=== PATIENT | male | born 1955 | race Caucasian/White ===

== ENCOUNTER 2024-06-03 10:29 | Observation (INO) ==
--- NOTE | 2024-04-29 11:11 | PAT Medication Instructions ---
Medication Instructions Date of Service April 29, 2024 Home Medications ibuprofen 200 mg tablet (Advil) 200 mg PO Q6H PRN ASK your surgeon for instructions ibuprofen 200 mg tablet (Advil) 200 mg PO Q6H PRN Other Notes NOTHING TO EAT OR DRINK AFTER MIDNIGHT. If you have any questions please call us at [phone] or [phone] or [phone] or [phone]
--- NOTE | 2024-05-08 11:18 | Anesthesiology Consultation ---
Date of Service May 08, 2024 Assessment & Plan (1) Encounter for pre-operative examination: - Outpatient joint assessment: Patient is currently scheduled for inpatient pathway. If re-evaluated and patient/surgeon requests outpatient pathway, patient is acceptable candidate for outpatient joint program from anesthesia standpoint pending surgeon's office assessment of pt motivation/support/completion of same day joint program preop requirements. Chart Review Chart Review: Acceptable Risk for Surgery and Patient seen in Pre Admission Testing Teaching & Discussion Pre-Anesthesia Teaching/Discussion Notes: Instructed NPO after midnight before surgery, except medications with 15 cc of water. Medication instructions provided according to the PAT guidelines. History Surgery Operation Date: 06/03/24 10:40 Proposed Procedures p Right Total Knee Arthroplasty - Christopher Milton MD Height/Weight Height: 5 ft 6 in Weight: 100.5 kg Allergies Allergy/AdvReac Type Severity Reaction Status Date / Time No Known Allergies Allergy Verified 04/28/24 09:18 Medications Home Medications Medication Instructions Recorded Confirmed Last Taken ibuprofen 200 mg tablet (Advil) 200 mg PO Q6H PRN Pain 02/17/20 04/28/24 Unknown Past Medical History Medical History Arthritis History of COVID-19 (2019) no hosp; resolved Obesity Stomach ulcer Summer 2019 (r/t NSAID use) Patient denies h/o stroke, seizures, heart attack, heart failure, DM, HTN, blood clots/DVTs or blood transfusions. Exercise / Class Metabolic Activity II 4-5 Yardwork/Stairs/Walk up hill (denies chest discomfort or shortness of breath with one flight of stairs) Past Family History Family History Other No family history of adverse response to anesthesia Past Surgical History Surgical History History of colonoscopy History of esophagogastroduodenoscopy (EGD) History of shoulder surgery Right History of total knee replacement Left Past Anesthesia History No Hx of Anesthesia Complications and No Family Hx of Anesthesia Complications History of PONV No Hx of PONV and No Hx of Motion Sickness Social History Smoking Status: Never smoker Do You Dip or Chew Tobacco: No Hx Alcohol Use: Yes Alcohol type: beer alcohol intake frequency: a few times a week Hx Substance Use: No substance use type: does not use Review of Systems Patient denies chest pain, shortness of breath, dyspnea on exertion, snoring, witnessed apneas, fever, chills, cough, wheezing, or palpitations. Physical Exam Vital Signs Vitals BP 127/79 P 76 TEMP 98.0 SP02 96% on RA RESP 19 Physical Patient resting comfortably in chair in no acute distress, alert and oriented, responding appropriately throughout visit Full cervical extension range of motion without pain TMD 3.5 finger breadths Mallampati Score 3 Dentition: intact, denies chipped or loose teeth, caps/crowns, implants or bridges Lungs: normal respiratory effort. Good air movement, clear throughout to auscultation, no adventitious breath sounds Cardiac: regular rate and rhythm, no murmurs noted Carotid arteries: negative bruit bilat Lab Results Anesthesia Preop Results Results Anesthesia Widget: WBC 6.05 K/ul (4.8-10.8) 05/08/24 Hgb 14.7 g/dl (14.0-18.0) 05/08/24 Hct 43.4 % (42.0-52.0) 05/08/24 Plt 286 K/uL (130-400) 05/08/24 Na 139 mmol/L (136-145) 05/08/24 K 4.1 mmol/L (3.5-5.1) 05/08/24 Cl 105 mmol/L (98-107) 05/08/24 CO2 29 mmol/L (21-32) 05/08/24 BUN 21 mg/dl (6-23) 05/08/24 Creat 0.92 mg/dl (0.6-1.4) 05/08/24 Glucose Level 83 mg/dl (70-99(Fasting)) 05/08/24 PT 10.3 Seconds (9.0-12.0) 05/08/24 PTT 26 Seconds (21-31) 05/08/24 INR 0.9 (0.9-1.1) 05/08/24 Blood Type A Positive 05/08/24 Antibody Screen NEGATIVE 05/08/24 Testing Electrocardiogram Date: 05/08/24 NSR, rate 74 bpm Chest X-Ray Date: 05/08/24 1. No active lung lesion noted. No other abnormalities noted. 2. Unfolding of arch of aorta likely due to senile changes.
--- NOTE | 2024-05-31 10:02 | History & Physical Report ---
Date of Service May 31, 2024 Assessment & Plan (1) Arthritis of knee, right: 68-year-old gentleman status post a left knee replacement 8 years ago with advanced right knee DJD. He has failed conservative treatment. He would like to proceed with knee replacement. Plan: We are going to take him to the operating room to do a right knee replacement. The risks and benefits of this procedure explained. Informed consent is obtained. Will use aspirin for DVT prophylaxis. He is planned to be discharged to home using [facility] health program. (2) History of total knee replacement: (3) Obesity: History of Present Illness Chief Complaint: . Persistent and progressive right knee pain and discomfort. Primary Care Provider: NO PCP . The patient is a 68-year-old gentleman well-known me from a previous left knee replacement done in 2014. He is done well well with this. Over the years he developed increased pain discomfort in his right knee. Failed conservative treatment. He was actually scheduled for knee replacement the past but got canceled due to COVID. He has been put in up with us over the past several years. Pain is gradually gotten worse. He like to have his right knee replaced. Allergies Allergy/AdvReac Type Severity Reaction Status Date / Time No Known Allergies Allergy Verified 04/28/24 09:18 Home Medications Medication Instructions Recorded Confirmed Type ibuprofen 200 mg tablet (Advil) 200 mg PO Q6H PRN Pain 02/17/20 04/28/24 History Past Med/Surg History Problem List Encounter for pre-operative examination Arthritis of knee, right Medical History History of COVID-19 (2019) no hosp; resolved Obesity Arthritis Stomach ulcer Summer 2019 (r/t NSAID use) Surgical History History of esophagogastroduodenoscopy (EGD) History of colonoscopy History of shoulder surgery Right History of total knee replacement Left Family History Other No family history of adverse response to anesthesia Social History Smoking Status: Never smoker Second Hand Exposure: Yes (PARENTS SMOKED WHEN PT WAS A CHILD); Do You Dip or Chew Tobacco: No; Hx Alcohol Use: Yes Alcohol type: beer Hx Substance Use: No Preferred Language: [place] Communication Ability: Effective Vending Machine Operator Required: No Beliefs That Will Affect Care: None Current Living Situation: Spouse Feels Safe at Home: Yes Assistive Devices: Glasses Review of Systems All systems reviewed & are unremarkable except as noted in HPI & below. Physical Exam . Physical examination reveals a pleasant middle-age male. Looks in pretty good health. Examination of the right knee reveal patient walks with a varus alignment to his knee. He has a little bit of varus thrust with weightbearing. He is tender with medial joint line with some bony hypertrophy. Range of motion is about 10 to 120 degrees. No gross instability. No pain with hip motion. Examination of the left knee reveals a well-healed incision. Anatomic alignment to the knee. No knee effusion. Range of motion 0-1 20. Constitutional WD/WN, vitals as above Respiratory normal respiratory effort, lungs clear to auscultation Cardiovascular RRR, no murmur, no edema Gastrointestinal (Abdomen) normal bowel sounds, soft, nontender, no hepatosplenomegaly Results & Data Results & Data Laboratory Results . Diagnostic Findings . X-rays of the right knee were reviewed from previously. Shows advanced right knee DJD. Good complete loss of medial joint space. He has subchondral sclerosis and osteophytes medially. 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 The left knee replacement looks in a good position without problems. PG Care Time/CCT Total # of Minutes Spent Total Time Spent with Patient: Total time spent is greater than 50% in coordination of care (as documented) at patient's floor/unit and/or counseling patient: Coding Level of Care Code None Diagnoses Arthritis of knee, right M17.11 History of total knee replacement Z96.659 Obesity E66.9
[~2024-06-03 10:29] MED LIST: ROPIVACAINE 0.5% 5 MG/ML 30 ML VIAL ONE
[2024-06-03] MEDS: LR 500ML BOLUS, THEN 15ML/HR IV SCH (11:02)
[2024-06-03] MEDS: LR 60ML/HR IV SCH (11:02)
[2024-06-03] MEDS: CeleBREX 200 MG CAP PO SCH (11:03)
[2024-06-03] MEDS: METOCLOPRAMIDE HCL 10 MG TABLET PO SCH (11:03)
[2024-06-03] MEDS: FAMOTIDINE 20 MG TAB PO SCH (11:03)
[2024-06-03] MEDS: ACETAMINOPHEN 500 MG TAB PO SCH ×2 (11:03→20:11)
[2024-06-03] MEDS: dexAMETHasone**PF** 10 MG/ML VIAL IV SCH (11:04)
--- NOTE | 2024-06-03 11:04 | History & Physical Bridge Note ---
Date of Service June 03, 2024 History & Physical Bridge Note I have examined the patient, reviewed the History & Physical and in the interval since the performance of the History & Physical I have noted the following changes of clinical significance: no changes noted
[2024-06-03] MEDS ORDERED: ATROPINE SULFATE 0.1 MG/ML 10ML SYR IV PRN (12:10)
[2024-06-03] MEDS ORDERED: ONDANSETRON INJ 2 MG/ML 2 ML VIAL IV PRN ×2 (12:10→15:31)
[2024-06-03] MEDS ORDERED: ePHEDrine sulfate 50 MG/ML AMP IV PRN (12:10)
[2024-06-03] MEDS ORDERED: fentaNYL citrate PF 100 MCG/2 ML VIAL IV PRN (12:10)
[2024-06-03] MEDS ORDERED: PROPOFOL IV EMULSION 10 MG/ML 20 ML VIAL IV ONE (12:14)
[2024-06-03] MEDS ORDERED: LIDOCAINE 2% 2 ML VIAL/AMP(20MG/ML) INFIL ONE (12:14)
[2024-06-03] MEDS ORDERED: ONDANSETRON INJ 2 MG/ML 2 ML VIAL ONE (12:14)
[2024-06-03] MEDS ORDERED: fentaNYL citrate PF 100 MCG/2 ML VIAL ONE (12:14)
[2024-06-03] MEDS ORDERED: MIDAZOLAM HCL 1 MG/ML 2ML VIAL ONE (12:14)
[2024-06-03] MEDS ORDERED: BUPIVACAINE 0.5 % 5 MG/1 ML PF 10ML VIAL ONE (12:31)
[2024-06-03] MEDS ORDERED: BUPIVACAINE 0.25% PF 30 ML VIAL ONE (12:31)
[2024-06-03] MEDS: ceFAZolin 2000MG 2,000 MG/15 ML SYR IV SCH ×2 (12:51→20:07)
[2024-06-03] MEDS ORDERED: KETOROLAC 30 MG/ML VIAL ONE (13:23)
[2024-06-03] MEDS ORDERED: ePHEDrine sulfate 50 MG/5 ML SYR ONE (13:26)
[2024-06-03] MEDS ORDERED: PHENYLEPHRINE 100MCG/ML 5ML SYR ONE ×2 (13:26→14:20)
[2024-06-03] MEDS: ROPIV 0.5% 246mg, Ketorolac 30mg, EPINEPHrine 0.5mg in NSS INFIL SCH (13:31)
[2024-06-03] MEDS: ORTHO JOINT ANESTHETIC ONE (13:32)
[2024-06-03] MEDS: TRANEXAMIC ACID 1,000 MG **IV Intra-op IV SCH (13:37)
--- NOTE | 2024-06-03 14:42 | Operative Report ---
PG Post Operative Report Pre & Post Diagnosis Operation Date: 06/03/24 12:30 Pre-Op Diagnosis: Right Knee Osteoarthritis Post-Op Diagnosis: Right Knee Osteoarthritis I identified the patient and participated in the time-out.: No Procedure Operation Date: 06/03/24 12:30 Actual Procedures p Right Total Knee Arthroplasty(Right) - Christopher Milton MD Surgeon Christopher Milton MD Stand Up Comedian Magdiel Tipton PA-C Estimated Blood Loss 50 Findings Consistent with Post-Op Diagnosis Operative findings reveal advanced right knee tricompartment DJD. He had extensive grade 4 [id number] disease of the medial and patellofemoral compartments. Less severe disease in the lateral side. He had a varus deformity to his knee with moderate-sized joint effusion. Specimens Right knee sent for pathology. Anesthesia Type Spinal MAC Complications none Disposition Accompanied Patient To Recovery: No Indications Patient is a 68-year-old gentleman who said a long history of knee pain and arthritis. He has been through extensive conservative treatment over the years. He has left knee replaced and done quite well from that. Over the past several years he developed increased pain discomfort of the right knee. Failed conser vative measures. He elected proceed with total knee arthroplasty. Description of Procedure Operative implants consist of: 1 Biomet Vanguard size 70 right posterior stabilized femoral component. 2. Biomet size 75 tibial tray. 3. 10 mm posterior stabilized polyethylene insert. 4. 34 x 8 and half all poly patella. The patient was taken to the op room, identified, placed on the operating table in the supine position. All conductors were appropriately padded. IV antibiotics fibra anesthesia team. A spinal anesthetic had been implemented in the holding area along with an adductor canal block. Right thigh tourniquet was then placed. The right lower extremity was then prepped and draped in usual sterile fashion. The right leg was elevated and exsanguinated with use of an Esmarch and a turn was placed at 300 mmHg. An anterior approach to the right knee was then performed through a longitudinal incision centered over the patella. Sharp dissection was Through subcutaneous tissue down the extensor mechanism. A medial parapatellar arthrotomy incision was made. Some subperiosteal dissection was carried out medially. The fat pad was dissected from Neath patella tendon. Lateral patellofemoral ligament was released. Patella subluxated laterally and the knee was flexed. The osteoarticular distal femur. The ACL PCL were then released from the distal femur and the tibia subluxated anteriorly. The external treatment LYMErix then placed on the anterior face of the tibia and adjusted 14 mm medially. The proximal tibial cut was made removed without a millimeter at most off the most efficient aspect of the posterior medial tibial plateau. Some osteophytes taken off medial and posterior medially. The tibia sized to a size 75. Attention was then drawn to the femur. The distal femur was entered with a sharp drill. Intramedullary canal was suction. A right 5 degree valgus cutting guide was placed. The distal femoral cutting block was pinned in place. Distal femoral cut was made to take an additional 3 mm of bone off distal femur. The femur was then sized to a size 70. The AP cutting block was pinned parallel to the epicondylar axis which was 4 degrees of external rotation. The anterior cut, anterior chamfer, posterior cut, posterior chamfer cuts were made. The box cutting guide was placed and just slight lateral and the box cut was made. The knee was flexed. The remnants of the medial and lateral menisci were excised. The osteophytes taken off the posterior aspect of femur. A trial femoral component was placed. The tibial tray was pinned in La external rotation and the drill and stem punch were used to create defect in proximal tibia for the tibial tray. The knee was then trialed and the 10 mm insert fit most appropriately. Attention was then drawn toward the patella. The patella was cleaned of all soft tissues. Patella was quite large with some bipartite component. The patella thickness measured approximately 23 mm in thickness and was cut down to 14. Was sized to a size 34 patella. The lug holes were drilled for 34 patella. The lateral osteophyte was removed. Patella button was placed. Knee was taken through range of motion patella tracked nicely with no thumbs test. Attention drawn to placement permanent components. If all trial components were removed. Bone plug was placed in the distal femur limit blood loss. Double batch Palacos G cement was mixed. A Biomet Vanguard size 70 right posterior stabilized femoral component, size 75 tibial tray, a 10 mm posterior stabilized polyethylene insert, and a 34 x 8 and half all poly patella then cemented in place. The knee was brought out into full extension till cement hardened. Final cement check was then performed. Pericapsular tissues were injected with a total of 100 cc of Ortho mix. The patient did receive 1 g of tranexamic acid. The tourniquet was then let down for final tourniquet time of 56 minutes. Hemostasis assured with electrocautery. Extensor Metros then closed with combination 1 PDS suture #1 Vicryl suture in a [id number] fashion. Extensor Mecl[place] was checked found to be intact with subcutaneous tissues then closed with 2 Dexon suture buried interrupted fashion and the skin was closed with skin orquidea. Leg was then cleaned and dried and a sterile dressing with Xeroform, 4 fours, sterile cast padding, Manan bandage were applied. Patient then transferred to the recovery room in stable condition. The patient tolerated the procedure well and there were no complications. Magdiel Tipton, my physician clinical trials assistant, was present for the entire procedure. His assistance was essential and required for appropriate patient positioning, prepping and draping, surgical exposure, performing the technical details of the operation, placement the implants, closure of the wound, and placement of the sterile bandage. I attest to the content of the Intraoperative Record and any orders documented therein. Any exceptions are noted below.
--- NOTE | 2024-06-03 14:50 | XRay Report ---
XR knee RT 1 or 2V routine CLINICAL HISTORY: Surgical Post Op COMPARISON: None FINDINGS: Right knee prosthesis shows no hardware complication. There is expected soft tissue gas. S kin orquidea are present. IMPRESSION: Unremarkable postoperative exam. ACT 112: Negative or not required by law. Electronically signed by: Mateusz Garrett M.D. 06/03/2024 2:48 PM
[2024-06-03] MEDS ORDERED: bisacodyL 10 MG SUPP PR PRN (15:31)
[2024-06-03] MEDS ORDERED: oxyCODONE HCL IR 5 MG TAB (IMMEDIATE RELEASE) PO PRN (15:31)
[2024-06-03] MEDS ORDERED: HYDROmorphone INJ 0.5 MG/0.5 ML SYR IV PRN (15:31)
[2024-06-03] MEDS ORDERED: METOCLOPRAMIDE HCL INJ 5 MG/ML 2 ML VIAL IV PRN (15:31)
[2024-06-03] MEDS ORDERED: ONDANSETRON 4 MG OD TAB PO PRN (15:31)
[2024-06-03] MEDS ORDERED: MAGNESIUM HYDROXIDE SUSP 30 ML UDC PO PRN (15:31)
[2024-06-03] MEDS ORDERED: ALUMINUM/MAGNESIUM SUSP 30 ML UDC PO PRN (15:31)
[2024-06-03] MEDS ORDERED: NALOXONE HCL 0.4 MG/1 ML VIAL/CARP IV PRN (15:31)
--- NOTE | 2024-06-03 15:50 | Anesthesiology Progress Note ---
Date of Service June 03, 2024 Anesthesia Post Procedure Vital Signs Vital Signs: Temp Pulse Pulse Resp BP Pulse Ox O2 Del Method 06/03/24 15:31 36.4 C L 121 H 14 113/66 96 Room Air 06/03/24 15:15 36.4 C L 115 H 12 117/67 96 Room Air 06/03/24 15:05 113 H 12 106/68 95 Room Air 06/03/24 14:55 114 H 13 110/66 99 Room Air 06/03/24 14:45 112 H 15 109/61 99 Oxymask 06/03/24 14:36 36.0 C L 123 H 16 104/57 L 97 Oxymask 06/03/24 10:46 36.4 C L 108 H 18 159/88 H 98 Room Air O2 Flow Rate 06/03/24 15:31 06/03/24 15:15 06/03/24 15:05 06/03/24 14:55 06/03/24 14:45 5 06/03/24 14:36 5 06/03/24 10:46 Pain Intensity Right Knee: Pain Intensity: 5 Transfer of Care Handoff Completed per policy Notes Mental Status: alert / awake / arousable Patient Amnestic to Procedure: Yes Nausea / Vomiting: adequately controlled Pain: adequately controlled Airway Patency, RR, SpO2: stable & adequate BP & HR: stable & adequate Hydration State: stable & adequate Neuraxial Anesthesia: was administered and sensory block is resolving Anesthetic Complications: no major complications apparent and Pt Satisfied with anesthetic care
[2024-06-03] MEDS: KETOROLAC TROMETHAMINE 15 MG/ML VIAL IV SCH (16:04)
[2024-06-03] MEDS: ASCORBIC ACID 500 MG TAB PO SCH (16:30)
[2024-06-03] MEDS: TRANEXAMIC ACID / 0.7% NACL 1,000 MG/100 ML BAG IV SCH (20:11)
[2024-06-03] MEDS: ASPIRIN 81 MG ECTAB PO SCH (20:12)
[2024-06-03] MEDS: DOCUSATE SODIUM 100 MG CAP PO SCH (20:12)
[2024-06-03] MEDS: SENNA 8.6 MG TAB PO SCH (20:12)
[2024-06-03] MEDS ORDERED: SENNA 8.6 MG TAB PO SCH (21:00)
[2024-06-04 06:49] LABS: Hematocrit (blood only) 38.1 % (42.0-52.0); Hemoglobin 12.9 g/dl (14.0-18.0); Mean Corpuscular Hemoglobin 30.1 pg (25.0-34.0); Mean Corpuscular Hgb Conc 33.9 g/dL (32.0-36.0); Mean Platelet Volume 10.6 fL (9.4-12.4); Platelet Count 267 K/uL (130-400); RDW Standard Deviation 42.5 fL (36.4-46.3); Red Blood Count 4.28 M/uL (4.70-6.10); White Blood Count 16.55 K/ul (4.8-10.8)
[2024-06-04 07:15] LABS: BUN Creatinine Ratio 24.4 (10-20); Calcium 8.9 mg/dl (8.6-10.3); Creatinine Clr Calc Pharmacy 92.5 ml/min; Potassium 4.2 mmol/L (3.5-5.1)
[2024-06-04] MEDS: TAMSULOSIN HCL 0.4 MG CAP PO SCH (08:19)
[2024-06-04] MEDS: dexAMETHasone 10 MG in SYRINGE 0 ML IV SCH (08:19)
[2024-06-04] MEDS: MULTIVITAMIN TAB PO SCH (08:20)
--- NOTE | 2024-06-04 09:48 | Orthopedic Progress Note ---
Date of Service June 04, 2024 Assessment & Plan (1) Status post total right knee replacement: (2) Aftercare following right knee joint replacement surgery: Plan 68-year-old gentleman POD# 1 s/p right total knee replacement, doing well overall. Pain is well-controlled. Medically stable. Postop x-rays well- appearing. He is neurologically intact. Plan: 1. DVT prophylaxis w/ TEDs, SCDs, ASA 81 mg BID. 2. PT/OT as tolerated. WBAT on the R LE. Encourage heel slides, SLR, full knee extension w/ quad sets. 3. Pain control doing well with current pain regimen. 4. Dressing change POD#2 per discharge instructions. 5. Disposition - plan to D/C [facility] later today once cleared by PT/OT. 6. F/u 2 weeks post-op w/ orthopedics (Dr. Milton's team), or as previously scheduled, for first post-op visit. Subjective Patient is POD# 1 s/p right total knee arthroplasty by Dr. Milton on 06/03/24. Patient says his pain is well-controlled this morning. Denies CP, SOB, N/V, R LE paresthesia. He has home health PT arranged to come to the house for therapy. Patient says that he will be ready to go home today. Review of Systems All systems reviewed & are unremarkable except as noted in HPI & below. Physical Exam Total hip/knee: GENERAL: AA&Ox3, NAD. Pleasant, affect is calm. Sitting in bed and appears comfortable. RESPIRATORY: Normal respiratory effort with no signs of distress. CHEST/AXILLA: Chest movement symmetrical. No deformities noted. CARDIOVASCULAR: No edema noted. SKIN: [place], warm and dry. MS/EXTREMITY: Knee dressing & SALVADOR wrap c/d/i. RUBA hose donned to contralateral LE. + ankle dorsi/plantarflexion. NVI distally. Calf soft/NT. PT/DP pulses intact, 2+. Able to SLR without assistance. Results & Data Results & Data Laboratory Results . Laboratory Results - last 24 hr 06/04/24 05:42 WBC 16.55 H RBC 4.28 L Hgb 12.9 L Hct 38.1 L MCV 89.0 MCH 30.1 MCHC 33.9 RDW Std Deviation 42.5 RDW Coeff of Ines 13.0 Plt Count 267 MPV 10.6 Sodium 139 Potassium 4.2 Chloride 107 Carbon Dioxide 28 Anion Gap 4 BUN 21 Creatinine 0.86 Est Cr Clr Drug Dosing 92.5 eGFR 95.50 BUN/Creatinine Ratio 24.4 H Glucose 118 H Calcium 8.9 Diagnostic Findings . Knee X-Ray 06/03/24 14:35 XR knee RT 1 or 2V routine CLINICAL HISTORY: Surgical Post Op COMPARISON: None FINDINGS: Right knee prosthesis shows no hardware complication. There is expected soft tissue gas. Skin orquidea are present. IMPRESSION: Unremarkable postoperative exam. ACT 112: Negative or not required by law. Electronically signed by: Mateusz Garrett M.D. 06/03/2024 2:48 PM PG Care Time/CCT Total # of Minutes Spent Total Time Spent with Patient: Total time spent is greater than 50% in coordination of care (as documented) at patient's floor/unit and/or counseling patient: [place] [address] Post Operative Follow-Up Patient Type Established History Problem Focused Exam Problem Focused Medical Decision Making Straight Forward Diagnoses Status post total right knee replacement Z96.651 Aftercare following right knee joint replacement surgery Z47.1; Z96.651
--- NOTE | 2024-06-04 11:15 | Discharge Summary ---
Date of Service June 04, 2024 Admission HPI (Per Admitting) . The patient is a 68-year-old gentleman well-known me from a previous left knee replacement done in 2015. He is done well well with this. Over the years he developed increased pain discomfort in his right knee. Failed conservative treatment. He was actually scheduled for knee replacement the past but got canceled due to COVID. He has been put in up with us over the past several years. Pain is gradually gotten worse. He like to have his right knee replaced. 68-year-old gentleman status post a left knee replacement 8 years ago with advanced right knee DJD. He has failed conservative treatment. He would like to proceed with knee replacement. Plan: We are going to take him to the operating room to do a right knee replacement. The risks and benefits of this procedure explained. Informed consent is obtained. Will use aspirin for DVT prophylaxis. He is planned to be discharged to home using [facility] home health program. Admission Exam (Per Admitting) . Physical examination reveals a pleasant middle-age male. Looks in pretty good health. Examination of the right knee reveal patient walks with a varus alignment to his knee. He has a little bit of varus thrust with weightbearing. He is tender with medial joint line with some bony hypertrophy. Range of motion is about 10 to 120 degrees. No gross instability. No pain with hip motion. Examination of the left knee reveals a well-healed incision. Anatomic alignment to the knee. No knee effusion. Range of motion 0-1 20. Constitutional WD/WN, vitals as above Respiratory normal respiratory effort, lungs clear to auscultation Cardiovascular RRR, no murmur, no edema Gastrointestinal (Abdomen) normal bowel sounds, soft, nontender, no hepatosplenomegaly Principal Diagnosis Same as "Discharge Diagnosis" noted below under Discharge Instructions. Discharge Exam Total hip/knee: GENERAL: AA&Ox3, NAD. Pleasant, affect is calm. Sitting in bed and appears comfortable. RESPIRATORY: Normal respiratory effort with no signs of distress. CHEST/AXILLA: Chest movement symmetrical. No deformities noted. CARDIOVASCULAR: No edema noted. SKIN: [place], warm and dry. MS/EXTREMITY: Knee dressing & SALVADOR wrap c/d/i. RUBA hose donned to contralateral LE. + ankle dorsi/plantarflexion. NVI distally. Calf soft/NT. PT/DP pulses intact, 2+. Able to SLR without assistance. Discharge Data Procedures Performed Operation Date: 06/03/24 12:30 Actual Procedures p Right Total Knee Arthroplasty(Right) - Christopher Milton MD Ordered Studies 06/03/24 05:00 US - OR guided needle placemen Routine Hospital Course (1) Status post total right knee replacement: (2) Aftercare following right knee joint replacement surgery: Plan On June 03, 2024 Raymond arrived at [facility] operating room and underwent a right total knee replacement without complications. Patient had an adductor canal block and spinal anesthetic for the procedure. Postoperatively, patient was transferred to the general orthopedic floor in stable condition and eventually started onto aspirin 81 mg twice daily for DVT prophylaxis as appropriate. Patient's hospital course was uneventful. On postoperative day #1, patient's vital signs were stable and pain was well- controlled. Patient was able to participate well with physical therapy, safely performing the necessary ambulation and range of motion exercises and properly demonstrating ADL tasks. Patient was then discharged home in stable condition, with home health PT services to begin. Patient will follow-up with orthopedics in 2 to 3 weeks for postoperative care. PG Care Time/CCT Total # of Minutes Spent Total Time Spent with Patient: Total time spent is greater than 50% in coordination of care (as documented) at patient's floor/unit and/or counseling patient: Discharge Plan Discharge Items Patient Disposition: Home - Home Health Services Reason For Visit: Right Knee Osteoarthritis Discharge Diagnosis: Right Knee Replacement Activity: Per Instructions section Weightbearing: Full weightbearing Non-emergency contact: Surgeon Call non-emergency contact if: you have any medication questions Follow-up/Referrals: Christopher Milton MD [Physician] - (06/20/24 @ 11:30) PCP,NO [Primary Care Provider] - Diet: Regular Addtl Attending Provider Instructions: ACTIVITY RECOMMENDATIONS: Diet: * You may resume previous diet. Physical Therapy: * You will go to physical therapy three times each week for four to six weeks after your surgery in order to regain your knee range of motion and to retrain your knee to work properly. * It is just as important to make sure you are getting your knee perfectly straight as it is to regain your knee bend. * Taking a pain pill an hour before therapy can help you have a more productive and comfortable therapy session. Home Exercise: * You were shown a series of exercises (heel props, heel slides, etc.) in the hospital. Do these exercises three to four times each day including the exercises you were shown in physical therapy. Walking: * Get up and walk several times each day. For the first four weeks, try not to stand or walk for more than one hour at a time. If you do stand or walk for more than one hour, you will not hurt anything, but your knee and leg will likely swell. * As you feel comfortable, you may change from the walker or crutches to a cane and then to independent walking. MEDICATIONS: New Medicine: * You will likely be taking one or more of these medications: 1. Oxycodone - A quick and shorter-acting pain medication. Take one to two tablets every six hours to lessen your pain. 2. Aspirin - Thins your blood to lessen the chance of forming a blood clot. * The most common side effects of pain medicine and iron are nausea and constipation. If nausea or constipation is too much of a problem or if you have any questions about your new medicines or doses, call [facility] at . We will try to help you manage these issues. "VERY IMPORTANT TO READ AND REVIEW" Pain: * The immediate post-operative period after knee replacement surgery is often quite painful. * You are given a prescription for pain medicine. You should take it, as directed, when you need it, especially before physical therapy and before going to bed. Pain that interferes with sleep is very common and can last several months. * You will likely need pain medicine for the first four to six weeks. It will not stop all of the pain. The pain will lessen and as you feel better, you may change to milder pain medicine such as Tylenol. * The most common side effects of pain medicine are nausea and constipation, so don't take more than you need. SPECIAL CARE INSTRUCTIONS: TEDs/Elastic Stockings: * The white elastic stockings help limit swelling and prevent blood clots from forming in your legs. The more you wear them, the more they work. * Wear them for six weeks after knee replacement surgery and four weeks after partial knee replacement. Incision Site Care: * Remove dressing postoperative day 2 and then shower. Keep direct shower pressure off the incision site. * After showering, cover orquidea with dry gauze and change daily or more frequently if the dressing is getting saturated with drainage. * Use the RUBA stockings to hold dressing in place. DO NOT apply tape on the skin. * May completely stop using bandage if wound is dry and no drainage * Orquidea are removed between 2 and 3 weeks post-op. If your follow-up appointment is made before 2 weeks, please have your appointment re- scheduled. It is too early to remove the orquidea. Prevention of Infection: * Take antibiotics one hour before any dental cleaning, dental work, urological procedure, gastrointestinal procedure or any invasive surgery in order to prevent your new joint from getting infected. * You may get the antibiotics from the doctor performing the procedure or you may call our office at [phone] before and we will call in a prescription to the pharmacy of your choice. Things to Watch For: * Drainage from the incision site that occurs more than one week after your surgery. * Severely increased knee/leg pain or swelling. * Increased redness at the incision site. * Fever above 102 degrees Fahrenheit. * Unusual chest pain or shortness of breath. * Unusual pain or burning with urination. Call [facility] at [phone] with any of the above problems or if you have any questions about your medicines or recovery. FOLLOW UP VISIT: Make an appointment to see your doctor for approximately two weeks after surgery for a progress check and staple removal by calling the office at [phone]. Pending Studies at Discharge: No Stand-Alone Forms: My [facility], Smoking Cessation Medications and DC Order Prescriptions: Continued oxycodone 5 mg tablet 5 - 10 mg PO Q6 PRN (Reason: pain) Qty: 40 0RF Rx Instructions: Take as needed for pain ondansetron 4 mg tablet,disintegrating 4 mg PO Q8 PRN (Reason: nausea) Qty: 20 1RF Rx Instructions: Take as needed for nausea ketorolac 10 mg tablet 10 mg PO Q6 5 Days Qty: 20 0RF Rx Instructions: Take 4 times per day with food for 5 days to lessen pain and swelling. sennosides [Senokot] 8.6 mg tablet 8.6 mg PO BID 14 Days Qty: 28 0RF Rx Instructions: Take two times a day to prevent/treat constipation acetaminophen [Tylenol Extra Strength] 500 mg tablet 1,000 mg PO TID 30 Days Qty: 180 0RF Rx Instructions: Take 3 times per day to lessen pain. aspirin [Poonam Low Dose Aspirin] 81 mg tablet,delayed release (DR/EC) 81 mg PO BID 45 Days Qty: 90 0RF Rx Instructions: Take to prevent blood clots. cefadroxil 500 mg capsule 500 mg PO BID 7 Days Qty: 14 0RF Rx Instructions: Take 1 cap twice a day to prevent infection tamsulosin [Flomax] 0.4 mg capsule 0.4 mg PO DAILY Qty: 7 0RF Rx Instructions: Begin night BEFORE surgery to prevent urinary retention Discontinued ibuprofen [Advil] 200 mg Tablet 200 mg PO Q6H PRN (Reason: Pain) Admission Data Admit Date/Time: 06/03/24 14:35 Attending Provider: Christopher Milton Admit Provider: Christopher Milton Primary Care Provider: PCP,NO Other Providers: [facility]
== END 2024-06-04 12:35 | disposition home health service (06) ==
LOC: 3W 10:29 → ASU 10:29